=== PATIENT | female | born 1980 | race Caucasian/White ===

== ENCOUNTER 2023-10-13 12:56 | Emergency (ER) | payer OTHER, SELFPAY ==
[2023-10-13 12:58] VITALS: BP 132/96
[2023-10-13 13:27] LABS: % Basophils 0.3 % (0-2); % Eosinophils 0.4 % (0-6); % Immature Granulocytes 0.2 % (0-0.5); % Lymphocytes 30.3 % (20.5-51.1); % Monocytes 7.6 % (1.7-9.3); % Neutrophils 61.2 % (42.2-75.2); Absolute Lymphocytes 2.7 10^3/uL (1.2-3.4); Absolute Monocytes 0.7 10^3/uL (0.1-0.6); Absolute Neutrophils 5.5 10^3/uL (1.4-6.5); Hematocrit 46.5 % (37.0-47.0); Hemoglobin 16.3 g/dL (12.0-16.0); Mean Corp Hgb Conc. 35.1 g/dL (33.0-37.0); Mean Corpuscular Hgb 29.8 pg (27.0-31.0); Mean Platelet Volume 9.7 fL (7.4-10.4); Nucleated Red Blood Cells % 0 %; Platelet Count 258 10^3/uL (130-400); Red Blood Cell Count 5.47 10^6/uL (4.20-5.40); Red Cell Dist. Width 11.7 % (11.5-14.5)
[2023-10-13 13:38] LABS: HCG, Serum Qualitative Screen Negative
[2023-10-13 13:43] LABS: ALT (SGPT) 19 U/L (0-35); AST (SGOT) 30 U/L (14-36); Albumin 5.3 g/dl (3.5-5.0); Alkaline Phosphatase 67 U/L (38-126); Blood Urea Nitrogen 9 mg/dl (7-17); Calcium 10.5 mg/dl (8.4-10.2); Carbon Dioxide 24 mmol/L (22-30); Chloride 102 mmol/L (98-107); Glucose 118 mg/dl (70-99); Potassium 4.2 mmol/L (3.5-5.1); Sodium 135 mmol/L (135-145); Total Bilirubin 0.7 mg/dl (0.2-1.3); eGFR > 60.00
[2023-10-13 13:52] LABS: Troponin I 0.019 ng/ml
--- NOTE | 2023-10-13 15:56 | ED.GENMED ---
History of Present Illness
General
Chief Complaint: Heart Rate Problem
Source: patient and physician
Exam Limitations: none
Time Seen by Provider: 10/13/23 15:38
Nursing documentation reviewed up to this point in time: agreed with
Travel History
Have you had any contact with someone who has COVID-19?: No
Do you have any symptoms of coronavirus? Fever > 100 degrees, chills, cough, shortness of breath, sore throat, loss of taste or smell, muscle aches, or headache?: No
History of Present Illness
History of Present Illness:
43-year-old female presents emergency department due to rapid heart rate on EKG seen at primary care. She initially went to primary care today due to difficulty sleeping. Due to her rapid heart rate she was sent to the emergency department. Upon
arrival her heart rate was 106, she is now in a normal range. She recently went to [facility] over the weekend.
Past History
Past History
ED Past Medical History: Asthma
ED Past Surgical History: (X2)
Social History
Tobacco: Former smoker
Alcohol: Occasional
Drug: None
Personal:
Living: with family
Review of Systems
Review of Systems
Allergies reviewed?: Yes
All Other Systems: Not applicable
Constitutional: Reports no symptoms
EENT: Reports no symptoms
Respiratory: Reports no symptoms
Cardiac: Reports other (Rapid heart rate)
ABD/GI: Reports no symptoms
: Reports no symptoms
Musculoskeletal: Reports no symptoms
Skin: Reports no symptoms
Neurological: Reports no symptoms
Endocrine: Reports no symptoms
Hematologic/Lymphatic: Reports no symptoms
Psychiatric: Reports no symptoms
Phy Exam
Physical Exam
Physical Exam:
Physical Exam
General: no apparent distress, not acutely ill
Neck: supple. no meningeal signs. normal posterior pharynx
Heart: s1/s2 regular rate and rhythm, no murmur. equal radial
pulses.
HEENT: Pupils equal round reactive to light, EOMI
Lungs: no acute respiratory distress. clear bilaterally
Abdomen: normal bowel sounds. not tender. no CVAT
Neuro: alert and oriented. no focal neurological deficits cranial nerves II through XII intact
Skin: no rash
Psychiatric: well kept. interactive and cooperative
Extremities: no edema. no calf tenderness. negative homans. good distal pulses
Course
Orders/Labs/Results
Orders:
Orders
10/13/23 13:02
Electrocardiogram (*1) Urgent
Reason for Study: Chest Pain
EKG- Treatment ONCE
10/13/23 13:03
Test Result ONCE
10/13/23 13:09
Complete Blood Count/With Diff Urgent
Comprehensive Metabolic Panel Urgent
HCG, Serum Qualitative Screen Urgent
Troponin I Urgent
10/13/23 15:59
D-Dimer Urgent
Troponin I Urgent
Abnormal Lab Results
10/13/23
13:09
RBC 5.47 H 10^6/uL
(4.20-5.40)
Hgb 16.3 H g/dL
(12.0-16.0)
Absolute Monos (auto) 0.7 H 10^3/uL
(0.1-0.6)
Glucose 118 H mg/dl
(70-99)
Calcium 10.5 H mg/dl
(8.4-10.2)
Albumin 5.3 H g/dl
(3.5-5.0)
10/13/23 13:09
10/13/23 13:09
Vital Signs
Initial and Last Documented VS:
Initial Vital Signs
Temp Pulse Resp BP Pulse Ox
98.2 F 106 16 132/96 98
10/13/23 12:58 10/13/23 12:58 10/13/23 12:58 10/13/23 12:58 10/13/23 12:58
Last Documented Vital Signs
Temp Pulse Resp BP Pulse Ox
98.2 F 92 11 125/95 97
10/13/23 12:58 10/13/23 16:02 10/13/23 16:02 10/13/23 16:02 10/13/23 16:02
MDM/Problems Addressed
Differential Diagnosis Includes:
Heart dysrhythmia, pulmonary embolism
MDM/Problems Addressed:
43-year-old female with sinus tachycardia, difficulty sleeping. Recent trip to [facility]. D-dimer negative. No signs of distress in ED. Stable for discharge. Will follow-up with primary care.
*Pulse Oximetry
Patient hypoxic: no
*EKG
Interpreted by ED Provider?: Yes
EKG Intrepretation Date: 10/13/23
EKG Intrepretation Time: 13:05
Interpretation: normal
Comparison EKG: no comparison EKG present
Heart Rate: 99
Rate: normal
Rhythm: sinus
[place]: normal axis
Interval: normal interval
QRS Pattern: normal QRS
Ischemia: no ischemia
*Diet Assistant Interpretation
Rate: normal
Interpretation: normal
Heart Rate: 92
Rhythm: sinus
*Critical Care Note
Total Time (30-74mins, 75-104mins- exclusive of procedures): Not Applicable
Patient Management
Social determinants of health affecting care: Living situation
Discussion with other providers: PCP (Discussed with Dr. Bai)
Escalation/DeEscalation of care consider admission/obs:
admit not indicated
ED Attending Note
-
Portions of this chart may have been created with voice recognition software.� Occasional wrong word or��sound alike� substitutions may have occurred due to the inherent limitations of voice recognition software.
Discharge Plan
Departure
Patient Disposition: Home (Routine Discharge)
Date of Disposition: 10/13/23
Time of Disposition: 16:57
Patient with high blood pressure during this ER visit?: No
Condition: Good
Discharge Problem:
Regular sinus tachycardia, Disturbance of sleep
Instructions: Sinus Tachycardia (DC), Insomnia (DC), BLOOD PRESSURE
Prescriptions:
No Action
vit [id number] [ Vitamin] 1 EACH tablet
1 ea PO DAILY
ibuprofen 600 MG tablet
600 mg PO Q6HPRN PRN (Reason: pain) Qty: 0 0RF
oxycodone-acetaminophen 5 MG/325 MG tablet
1 tab PO Q3HPRN PRN (Reason: moderate pain) Qty: 20 0RF
ondansetron 4 mg tablet,disintegrating
4 mg PO Q8HPRN PRN (Reason: nausea and vomiting) Qty: 10 0RF
Referrals:
Gifty Bai, DO [Active] - Call in 1-3 days for appt
UNKNOWN - PT DOES,NOT KNOW [Family Provider] -
Interventions
Interventions:
*Risk Screen - Suicide Last Done: 10/13/23 13:01
*General Assessment Last Done: 10/13/23 12:58
*Neglect/Abuse Screening Last Done: 10/13/23 12:58
*ED COVID-19 Vaccine History Last Done: 10/13/23 15:43
ED- Cardiac Assessment Last Done: 10/13/23 16:10
ED- Pulmonary Assessment Last Done: 10/13/23 16:10
Discharge Date and Time
Print Language: FILIPINO
[2023-10-13 16:02] VITALS: BP 125/95
[2023-10-13 16:37] LABS: D-Dimer < 0.27 ug/mlFEU (0.00-0.50)
[2023-10-13 16:51] LABS: Troponin I < 0.012 ng/ml
[2023-10-13 17:00] VITALS: BP 126/97
== END 2023-10-13 17:23 | disposition home or self-care (01) ==
LOC: EMR 12:56
PROVIDERS: Emergency Medicine; EMERGENCY PHYSICIAN Emergency Medicine
DX: R00.0 Tachycardia, unspecified (principal); G47.9 Sleep disorder, unspecified; Z87.891 Personal history of nicotine dependence
CPT/HCPCS: 99284; 80053; 84484; 84703; 85025; 85379; 93005

== ENCOUNTER 2023-10-14 02:08 | Emergency (ER) | payer OTHER, SELFPAY ==
[2023-10-14 02:11] VITALS: BP 144/92
--- NOTE | 2023-10-14 02:49 | ED.GENMED ---
History of Present Illness
<NORMA Brenner - Last Filed: 10/14/23 21:56>
General
Chief Complaint: Anxiety
Source: patient
Exam Limitations: none
Time Seen by Provider: 10/14/23 02:34
Nursing documentation reviewed up to this point in time: agreed with
Travel History
Have you had any contact with someone who has COVID-19?: No
Do you have any symptoms of coronavirus? Fever > 100 degrees, chills, cough, shortness of breath, sore throat, loss of taste or smell, muscle aches, or headache?: No
History of Present Illness
History of Present Illness:
patient is a 43 y/o female presenting with anxiety x 6 hours. Patient admits that she was at the ED earlier today for insomnia x 6 days while on her vacation in [facility]. Patient admits that she has had increased anxiety over the last 6 days that
encompassed palpitations, flushing and sleep disturbance. Patient was worked up with EKG and D dimer which both were unremarkable. Patient was discharged and went home and took doxepin to calm down. Patient states she had overwhelming anxiety while
laying in bed and returned. Patient is currently having palpitations, flushing and body spasms. Patient denies having previous episodes like this in the past. Patient denies N/V/D/C, CP, SOB, SAUCEDA. Patient states since the anxiety began 6 days ago she
has had decreased appetite. Patient denies any new onset life stressors. Patient denies any tobacco or alcohol intake in last 48 hrs. EKG from earlier today was reviewed and showed no abnormalities.
Past History
<NORMA Brenner - Last Filed: 10/14/23 21:56>
Past History
ED Past Medical History: Asthma
ED Past Surgical History: (X2)
Social History
Tobacco: Former smoker
Alcohol: Occasional
Drug: None
Personal:
Living: with family
Review of Systems
<NORMA Brenner - Last Filed: 10/14/23 21:56>
Review of Systems
Constitutional: Reports sleep disturbance
Respiratory: Reports trouble breathing (hyperventilation)
Cardiac: Reports diaphoresis and palpitations
ABD/GI: Reports no symptoms
: Reports no symptoms
Musculoskeletal: Reports back pain
Skin: Reports other (flushing)
Neurological: Reports no symptoms
Psychiatric: Reports anxiety
Phy Exam
<NORMA Brenner - Last Filed: 10/14/23 21:56>
Physical Exam
Physical Exam:
anxious on exam
Cardiovascular Exam
Cardiovascular Exam: tachycardia
Skin Exam
Skin Exam: warm/dry and erythema
Psychiatric Exam
Psychiatric Exam: anxious
Course
<NORMA Brenner - Last Filed: 10/14/23 21:56>
Orders/Labs/Results
Orders:
Orders
10/14/23 04:59
Lorazepam [Ativan] 1 mg PO NOW STA
Vital Signs
Initial and Last Documented VS:
Initial Vital Signs
Temp Pulse Resp BP Pulse Ox
98.6 F 103 24 144/92 99
10/14/23 02:11 10/14/23 02:11 10/14/23 02:11 10/14/23 02:11 10/14/23 02:11
Last Documented Vital Signs
Temp Pulse Resp BP Pulse Ox
98.6 F 103 24 125/93 98
10/14/23 02:11 10/14/23 02:11 10/14/23 02:11 10/14/23 06:00 10/14/23 06:30
<Mikey Peñaloza DO - Last Filed: 10/14/23 06:40>
Orders/Labs/Results
Orders:
Orders
10/14/23 04:59
Lorazepam [Ativan] 1 mg PO NOW STA
Vital Signs
Initial and Last Documented VS:
Initial Vital Signs
Temp Pulse Resp BP Pulse Ox
98.6 F 103 24 144/92 99
10/14/23 02:11 10/14/23 02:11 10/14/23 02:11 10/14/23 02:11 10/14/23 02:11
Last Documented Vital Signs
Temp Pulse Resp BP Pulse Ox
98.6 F 103 24 125/93 98
10/14/23 02:11 10/14/23 02:11 10/14/23 02:11 10/14/23 06:00 10/14/23 06:30
<NORMA Brenner - Last Filed: 10/14/23 21:56>
MDM/Problems Addressed
Differential Diagnosis Includes:
anxiety
pheochromocytoma
MDM/Problems Addressed:
anxiety
<Mikey Peñaloza DO - Last Filed: 10/14/23 06:40>
MDM/Problems Addressed
Differential Diagnosis Includes:
anxiety
Insomnia
<NORMA Brenner - Last Filed: 10/14/23 21:56>
*Critical Care Note
Total Time (30-74mins, 75-104mins- exclusive of procedures): Not Applicable
<Mikey Peñaloza DO - Last Filed: 10/14/23 06:40>
*Pulse Oximetry
Patient hypoxic: no
*Chemical Production Engineer Interpretation
Rate: normal
<Mikey Peñaloza DO - Last Filed: 10/14/23 06:40>
Patient Management
Social determinants of health affecting care: Living situation and Strong social support
ED Attending Note
<NORMA Brenner - Last Filed: 10/14/23 21:56>
-
Portions of this chart may have been created with voice recognition software.� Occasional wrong word or��sound alike� substitutions may have occurred due to the inherent limitations of voice recognition software.
<Mikey Peñaloza DO - Last Filed: 10/14/23 06:40>
ED Attending Note
Patient seen and examined by attending physician: Yes
I performed the substantive portion of visit, reviewed & personally made and approve the management plan that is documented in note by myself or GRICEL.: Yes
ED Attending Note:
Pleasant 43-year-old female presents with insomnia for the last 6 days. She was on vacation with her family for and has been having poor sleep since. She saw her primary care provider who took an EKG and was sent to the emergency department
earlier yesterday evening for workup. She was seen by a different ER physician and had complete cardiac workup and was discharged. She got home and stated that she could not sleep. She started feel anxious and thought she was having a panic
attack so she called EMS and came back to the emergency department. Upon arrival she was still anxious. She received a dose of Ativan which allowed her to sleep for several hours. Upon awakening, she states that her symptoms had resolved and she
did admit to getting some sleep. She denies any chest pain or shortness of breath. Patient was seen in conjunction with the PA student. I have reviewed and agree with the history and treatment plan presented. On my independent physical exam,
patient is awake, alert, and oriented x3, no acute distress. Heart is regular rate and rhythm. Lungs are clear to auscultation bilaterally without wheezes rales or rhonchi present. Abdomen is soft and nontender. She is mentating appropriately.
Moves all 4 extremities.
Discharge Plan
Departure
Patient Disposition: Home (Routine Discharge)
Date of Disposition: 10/14/23
Time of Disposition: 06:36
Patient with high blood pressure during this ER visit?: Yes
Condition: Good
Discharge Problem:
Anxiety, Insomnia
Instructions: Anxiety, Adult (DC), BLOOD PRESSURE
Prescriptions:
New
lorazepam [Ativan] 0.5 mg tablet
0.5 mg PO HS PRN (Reason: anxiety) Qty: 7 0RF
No Action
Zyrtec 10 mg Capsule
10 mg PO DAILY
doxepin 6 mg Tablet
6 mg PO HS
Referrals:
Gifty Bai DO [Family Provider] -
Activity Restrictions/Additional Instructions:
It was a pleasure meeting you and taking part in your care. We hope for your continued healing and wellness.
Please read discharge instructions in their entirety. However, they are for general education and may not describe your exact diagnosis at discharge. Information on your ER visit and medical conditions were discussed with you along with appropriate
follow up information...
If indicated, please take your medications as instructed and indicated on discharge paperwork.
Please schedule a follow up appointment as directed. Call to schedule an appointment
Please return to the emergency department with ANY change in, persisting, or worsening of symptoms. If any of your symptoms do not improve, or persist, or become more severe within 6-12 hours, please return to the emergency department for further
care.
Please return to the emergency department if you develop a headache, neck pain/stiffness, fever greater than 100.4F, chest pain, shortness of breath, persistent nausea, vomiting, slurred speech, difficulty walking, numbness/tingling, weakness, signs
of infection or any other symptoms that are worrisome to you.
If you have any questions or concerns please do not hesitate to call the Hospital at or E-mail me directly at [email or web address]
Interventions
Interventions:
*Risk Screen - Suicide Last Done: 10/14/23 02:11
*General Assessment Last Done: 10/14/23 02:11
*Neglect/Abuse Screening Last Done: 10/14/23 02:11
ED- Fall Risk Assessment Last Done: 10/14/23 02:25
*Nursing Disposition Last Done: 10/14/23 06:45
ED-Psychological Assessment Last Done: 10/14/23 02:25
Discharge Date and Time
Discharge Date/Time: 10/14/23 06:46
Print Language: WOLOF
[2023-10-14 03:00] VITALS: BP 135/94
[2023-10-14] MEDS: ATIVAN 1 MG PO (05:05)
[2023-10-14 05:07] VITALS: BP 137/96
[2023-10-14 06:00] VITALS: BP 125/93
== END 2023-10-14 06:46 | disposition home or self-care (01) ==
LOC: EMR 02:08
PROVIDERS: EMERGENCY PHYSICIAN Student in an Organized Health Care Education/Training Program; FAMILY PHYSICIAN Family Medicine
DX: F41.9 Anxiety disorder, unspecified (principal); G47.00 Insomnia, unspecified; R00.2 Palpitations; R23.2 Flushing; R03.0 Elevated blood-pressure reading, without diagnosis of hypertension; J45.909 Unspecified asthma, uncomplicated
CPT/HCPCS: 99283

== ENCOUNTER → 2023-10-27 08:34 | Outpatient (REF) | payer OTHER, SELFPAY | LOC: RCS 08:34 | PROVIDERS: ATTENDING PHYSICIAN Family Medicine | DX: R00.0 Tachycardia, unspecified (principal) | CPT/HCPCS: 93225; 93226 ==

== ENCOUNTER → 2023-11-24 09:20 | Outpatient (REF) | payer OTHER, SELFPAY | LOC: HWRCS 09:20 | PROVIDERS: ATTENDING PHYSICIAN Internal Medicine Cardiovascular Disease; FAMILY PHYSICIAN Family Medicine | DX: R00.0 Tachycardia, unspecified (principal) | CPT/HCPCS: 93306 ==

== ENCOUNTER 2023-12-11 08:04 | Emergency (ER) | payer OTHER, SELFPAY ==
[2023-12-11 08:06] VITALS: BP 137/95
[2023-12-11 08:14] VITALS: BMI 20.4
--- NOTE | 2023-12-11 08:25 | ED.GENMED ---
History of Present Illness
General
Chief Complaint: Abdominal Symptoms
Source: patient
Time Seen by Provider: 12/11/23 08:10
Travel History
Have you had any contact with someone who has COVID-19?: No
Do you have any symptoms of coronavirus? Fever > 100 degrees, chills, cough, shortness of breath, sore throat, loss of taste or smell, muscle aches, or headache?: No
History of Present Illness
History of Present Illness:
43-year-old female with no significant past medical history presents to the emergency department for evaluation after she has been dealing with 2 months of almost daily nausea and vomiting, palpitations, diminished p.o. intake, restlessness and
difficulty sleeping and generally feeling unwell. Patient states this all started a few days after returning home from vacation while in [place], noting she has been to the same [place] multiple times without any issues. She has been worked up by
her primary care provider, DIRECTOR CLINICAL PHARMACOLOGY and has been to the emergency department as well. No reported explanations despite being started on multiple medications including an SSRI, attempting Ativan and Klonopin, BuSpar, Zofran ODT, propranolol. She reports
the propranolol seem to help her the most but states still having symptoms despite this. Patient denies any SI, HI, hallucinations but does states she is just tired of having the symptoms and wants them to go away. She has an appointment scheduled
with [facility] for [facility] but states not seeing them until December 23 and a week or 2 later as well. She is also scheduled to have an abdominal ultrasound but was unable to get this appointment for a few weeks. Patient believes that the symptoms
may be related to her menstrual period.
Past History
Past History
ED Past Surgical History: Appendectomy and (X2)
Social History
Tobacco: Former smoker
Alcohol: Occasional (Drink wine every other day but has stopped doing this over the last 2 months)
Drug: Marijuana (Medical marijuana card but has not been using this as it stimulated palpitations)
Personal:
Living: with family
Review of Systems
Review of Systems
All Other Systems: ROS reviewed and negative except as documented in HPI and ROS
Phy Exam
Physical Exam
Physical Exam:
GENERAL: Alert , tearful, anxious
EYE: clear conjunctiva b/l
HEAD: NCAT
ENT: o/p clr, mmm.
CARDIAC: Regular rate and rhythm .
LUNGS: Clear breath sounds bilaterally, no acute respiratory distress, no wheezes/rales/rhonchi
ABDOMEN: Soft, without focal tenderness, no r/g, no cvat
NEUROLOGICAL: Alert and oriented
SKIN: Warm and dry, skin intact.
MUSCULOSKELETAL: well perfused.
PSYCH: Normal and appropriate interaction.
Scores
Heart Failure Risk
Heart Failure Risk Score: Not Applicable
Heart Score for Chest Pain Patients
STEMI patient?: Not applicable
Withdrawal Assessment of Alcohol
Withdrawal Assessment Completed?: Not applicable
Course
Orders/Labs/Results
Orders:
Orders
12/11/23 08:23
Diphenhydramine [Benadryl] 25 mg IV NOW STA
Ondansetron Injectable [Zofran] 4 mg IV NOW STA
Test Result ONCE
12/11/23 08:24
US Abdomen Complete/Upper Urgent
Comment:
Reason For Exam: nausea and vomiting
12/11/23 09:21
Crisis Consult Urgent
Reason for Consult: depression/anxiety
12/11/23 09:25
Complete Blood Count/With Diff Urgent
Comprehensive Metabolic Panel Urgent
Free T3 Urgent
Free T4 Urgent
HCG, Serum Qualitative Screen Urgent
Magnesium Urgent
TSH Urgent
Abnormal Lab Results
12/11/23
09:25
RDW 11.4 L %
(11.5-14.5)
Absolute Neuts (auto) 6.9 H 10^3/uL
(1.4-6.5)
Creatinine 0.5 L mg/dL
(0.6-1.0)
12/11/23 09:25
12/11/23 09:25
Vital Signs
Initial and Last Documented VS:
Initial Vital Signs
Temp Pulse Resp BP Pulse Ox
97.4 F 75 16 137/95 98
12/11/23 08:06 12/11/23 08:06 12/11/23 08:06 12/11/23 08:06 12/11/23 08:06
Last Documented Vital Signs
Temp Pulse Resp BP Pulse Ox
97.4 F 63 18 121/84 99
12/11/23 08:06 12/11/23 09:40 12/11/23 09:40 12/11/23 09:40 12/11/23 09:40
MDM/Problems Addressed
Differential Diagnosis Includes:
Anxiety/depression, electrolyte disturbance, less concern for an acute surgical abdomen, thyroid disorder
MDM/Problems Addressed:
43-year-old female presenting emergency department for evaluation of 2 months of anxiety, palpitations, nausea and vomiting. Has had extensive workup through primary care provider, PROCESS SAFETY SPECIALIST and has been seen in the emergency department recently as
well but no specific etiology is found. Patient is hemodynamically stable here, appears very anxious. Overall I doubt any emergent pathologies however we will repeat labs. Will also obtain ultrasound while patient is in the emergency department.
Agreeable to evaluation by Kati Garcia while here. Reassessment following
*Radiology
Radiology exam reviewed: radiology read reviewed
*Pulse Oximetry
Patient hypoxic: no
*Critical Care Note
Total Time (30-74mins, 75-104mins- exclusive of procedures): Not Applicable
Data Reviewed
Review of Other/Old Records Reveals: Labs and Records
Source: patient
Patient Management
Discussion with other providers: PCP
Escalation/DeEscalation of care consider admission/obs:
Patient is resting comfortably and in no acute distress. Her ultrasound ultimately came back without any abnormal pathologies. Labs are also unremarkable. Awaiting consultation with [facility]. I did notify patient's primary care provider
about her workup thus far and will follow-up with patient on this later this afternoon at her appointment.
Patients US without any abnormal findings. Medically I do not suspect any emergent pathology. Patient is stable and medically cleared to be evaluated at [facility]
ED Attending Note
-
Portions of this chart may have been created with voice recognition software.� Occasional wrong word or��sound alike� substitutions may have occurred due to the inherent limitations of voice recognition software.
Discharge Plan
Departure
Patient Disposition: [facility]
Date of Disposition: 12/11/23
Time of Disposition: 12:23
Patient with high blood pressure during this ER visit?: No
Discharge Problem:
Nausea and vomiting
Instructions: Nausea and Vomiting, Adult (DC)
Prescriptions:
No Action
Zyrtec 10 mg Capsule
10 mg PO DAILY
doxepin 6 mg Tablet
6 mg PO HS
lorazepam [Ativan] 0.5 mg tablet
0.5 mg PO HS PRN (Reason: anxiety) Qty: 7 0RF
Referrals:
Gifty Bai DO [Family Provider] -
Interventions
Interventions:
*Risk Screen - Suicide Last Done: 12/11/23 08:15
*General Assessment Last Done: 12/11/23 08:15
*Neglect/Abuse Screening Last Done: 12/11/23 08:15
ED- Fall Risk Assessment Last Done: 12/11/23 08:17
*ED COVID-19 Vaccine History Last Done: 12/11/23 08:06
HA-Elnhwc-Fntlukekkc Assessment Last Done: 12/11/23 08:17
Discharge Date and Time
Print Language: [email or web address]
[2023-12-11] MEDS: ZOFRAN 4 MG IV (09:26)
[2023-12-11] MEDS: BENADRYL 25 MG IV (09:26)
[2023-12-11 09:40] VITALS: BP 121/84
[2023-12-11 09:49] LABS: % Basophils 0.2 % (0-2); % Eosinophils 0.5 % (0-6); % Immature Granulocytes 0.3 % (0-0.5); % Lymphocytes 22.7 % (20.5-51.1); % Monocytes 5.6 % (1.7-9.3); % Neutrophils 70.7 % (42.2-75.2); Absolute Eosinophils 0.1 10^3/uL (0-0.7); Absolute Lymphocytes 2.2 10^3/uL (1.2-3.4); Absolute Monocytes 0.6 10^3/uL (0.1-0.6); Absolute Neutrophils 6.9 10^3/uL (1.4-6.5); Hematocrit 44.6 % (37.0-47.0); Hemoglobin 15.7 g/dL (12.0-16.0); Mean Corp Hgb Conc. 35.2 g/dL (33.0-37.0); Mean Corpuscular Hgb 29.9 pg (27.0-31.0); Mean Platelet Volume 10.1 fL (7.4-10.4); Nucleated Red Blood Cells % 0 %; Platelet Count 239 10^3/uL (130-400); Red Blood Cell Count 5.25 10^6/uL (4.20-5.40); Red Cell Dist. Width 11.4 % (11.5-14.5); White Blood Cell Count 9.8 10^3/uL (4.8-10.8)
[2023-12-11 10:03] LABS: HCG, Serum Qualitative Screen Negative
[2023-12-11 10:17] LABS: ALT (SGPT) 23 U/L (0-35); AST (SGOT) 29 U/L (14-36); Albumin 4.5 g/dl (3.5-5.0); Alkaline Phosphatase 57 U/L (38-126); Blood Urea Nitrogen 9 mg/dl (7-17); Carbon Dioxide 22 mmol/L (22-30); Chloride 107 mmol/L (98-107); Estimated Creatinine Clearance 124 ml/min; Glucose 98 mg/dl (70-99); Magnesium 1.8 mg/dl (1.6-2.3); Potassium 4.3 mmol/L (3.5-5.1); Sodium 137 mmol/L (135-145); eGFR > 60.00
[2023-12-11 10:37] LABS: TSH 0.89 uIU/ml (0.47-4.68)
[2023-12-11 11:56] LABS: Free T3 3.91 pg/ml (2.77-5.27)
[2023-12-11 13:10] VITALS: BP 123/89
== END 2023-12-11 13:12 ==
LOC: EMR 08:04
PROVIDERS: Physician Assistant Medical; EMERGENCY PHYSICIAN Emergency Medicine; FAMILY PHYSICIAN Family Medicine
DX: R11.2 Nausea with vomiting, unspecified (principal); Z87.891 Personal history of nicotine dependence; Z90.49 Acquired absence of other specified parts of digestive tract
CPT/HCPCS: 99284; 76700; 80053; 83735; 84439; 84443; 84481; 84703; 85025

== ENCOUNTER → 2023-12-14 13:00 | Outpatient (REF) | payer OTHER, SELFPAY | LOC: RAD 13:00 | PROVIDERS: ATTENDING PHYSICIAN Obstetrics & Gynecology; FAMILY PHYSICIAN Family Medicine | DX: N94.6 Dysmenorrhea, unspecified (principal) | CPT/HCPCS: 76830; 76856 ==

== ENCOUNTER 2024-09-06 12:58 | Emergency (ER) | payer OTHER, SELFPAY ==
[2024-09-06 13:03] VITALS: BP 149/100
[2024-09-06 13:28] LABS: % Basophils 0.2 % (0-2); % Eosinophils 0.5 % (0-6); % Immature Granulocytes 0.4 % (0-0.5); % Lymphocytes 29.2 % (20.5-51.1); % Monocytes 5.6 % (1.7-9.3); % Neutrophils 64.1 % (42.2-75.2); Absolute Eosinophils 0.1 10^3/uL (0-0.7); Absolute Lymphocytes 3.3 10^3/uL (1.2-3.4); Absolute Monocytes 0.6 10^3/uL (0.1-0.6); Absolute Neutrophils 7.3 10^3/uL (1.4-6.5); Hematocrit 43.8 % (37.0-47.0); Hemoglobin 14.9 g/dL (12.0-16.0); Mean Corpuscular Hgb 29.6 pg (27.0-31.0); Mean Corpuscular Volume 86.9 fL (81.0-99.0); Mean Platelet Volume 9.8 fL (7.4-10.4); Nucleated Red Blood Cells % 0 %; Platelet Count 257 10^3/uL (130-400); Red Blood Cell Count 5.04 10^6/uL (4.20-5.40); Red Cell Dist. Width 12.4 % (11.5-14.5); White Blood Cell Count 11.3 10^3/uL (4.8-10.8)
[2024-09-06 13:34] LABS: HCG, Serum Qualitative Screen Negative
[2024-09-06 13:37] LABS: ALT (SGPT) 22 U/L (0-35); AST (SGOT) 24 U/L (14-36); Albumin 4.4 g/dl (3.5-5.0); Alkaline Phosphatase 92 U/L (38-126); Blood Urea Nitrogen 14 mg/dl (7-17); Calcium 10.3 mg/dl (8.4-10.2); Carbon Dioxide 24 mmol/L (22-30); Chloride 103 mmol/L (98-107); Glucose 87 mg/dl (70-99); Lipase 243 U/L (23-300); Potassium 4.1 mmol/L (3.5-5.1); Sodium 136 mmol/L (135-145); Total Bilirubin 0.4 mg/dl (0.2-1.3); eGFR > 60.00
[2024-09-06] MEDS: ZOFRAN 4 MG IV (17:27)
[2024-09-06] MEDS: MORPHINE SULFATE 4 MG IV (17:27)
[2024-09-06] MEDS: NSS 1000 IV (17:28)
--- NOTE | 2024-09-06 17:53 | ED.GENMED ---
History of Present Illness
General
Chief Complaint: Abdominal Pain
Source: patient
Exam Limitations: none
Time Seen by Provider: 09/06/24 16:44
Nursing documentation reviewed up to this point in time: agreed with
History of Present Illness
History of Present Illness:
44-year-old female presenting to the emergency department for evaluation of abdominal pain. Patient reports symptom onset this morning after waking and initially describes as a dull cramping across her lower abdomen. Pain gradually worsened
prompting evaluation emergency department. Patient did have associated nausea and dry heaves morning, as well. Patient denies any vomiting, diarrhea/constipation, dysuria/hematuria. Patient denies any chest pain or shortness of breath. No
abnormal vaginal bleeding or discharge. No fevers or chills.
Patient states symptoms feel similar to prior ovarian cyst rupture.
Patient did have her appendix removed a few years ago.
Past History
Past History
ED Past Medical History: Asthma
ED Past Surgical History: Appendectomy and (X2)
Social History
Tobacco: Former smoker
Alcohol: Occasional (Drink wine every other day but has stopped doing this over the last 2 months)
Drug: Marijuana (Medical marijuana card but has not been using this as it stimulated palpitations)
Personal:
Living: with family
Review of Systems
Review of Systems
Allergies reviewed?: Yes
All Other Systems: ROS reviewed and negative except as documented in HPI and ROS
Phy Exam
Physical Exam
Physical Exam:
Vitals: Hypertensive, otherwise vital signs stable. Afebrile
General: Patient is tearful, moderately uncomfortable due to pain
Skin: Warm and dry, no rashes or lesions
Head: Normocephalic, atraumatic
Eyes: Sclera nonicteric. EOMs intact. No nystagmus.
Throat: Protecting airway
Neck: Normal ROM, no cervical spine tenderness, no meningismus
Cardiac: Regular rate and rhythm, no murmurs.
Pulm: Normal respiratory effort, no wheezes, rales, rhonchi heard on exam.
Abdomen: Abdomen soft. Diffuse tenderness in lower abdomen, worse in right lower quadrant. No rebound tenderness or guarding
Extremities: No evidence of cyanosis or edema. Palpable DP pulses bilaterally
Neuro: AAOx3. Grossly intact.
Psychiatric: Normal affect.
Course
Orders/Labs/Results
Orders:
Orders
09/06/24 13:09
Test Result ONCE
09/06/24 13:14
CMP [Comprehensive Metabolic Panel] Urgent
Complete Blood Count/With Diff Urgent
HCG, Serum Qualitative Screen Urgent
Lipase Urgent
09/06/24 15:33
US Pelvis W Transvag Combined Urgent
Comment:
Reason For Exam: pelvic pain
09/06/24 17:12
Electrocardiogram (*1) Urgent
Reason for Study: Abdominal Pain
EKG- Treatment ONCE
0.9% Sodium Chloride 1000 ml [Nss] 1,000 ml IV BOLUS
Morphine Sulfate 4 mg IV NOW STA
Ondansetron Injectable [Zofran] 4 mg IV NOW STA
09/06/24 17:13
CT Abd/pelvis W Iv Cont Urgent
Comment:
Reason For Exam: Lower abdominal pain, +nausea
09/06/24 18:14
Ketorolac [Toradol] 15 mg IV NOW STA
09/06/24 19:31
Urinalysis Reflex To Culture Urgent
Date Specimen was Collected: 09/06/24
Time Specimen was Collected: 19:28
Urine Microscopic Reflex Cult Urgent
Abnormal Lab Results
09/06/24 09/06/24
13:14 19:31
WBC 11.3 H 10^3/uL
(4.8-10.8)
Absolute Neuts (auto) 7.3 H 10^3/uL
(1.4-6.5)
Calcium 10.3 H mg/dl
(8.4-10.2)
Urine Ketones 2+ A
(Negative)
Urine Bacteria (Reflex) Few A
(Negative)
Urine Albumin (Reflex) 2+ A
(Neg - Trace)
09/06/24 13:14
09/06/24 13:14
Vital Signs
Initial and Last Documented VS:
Initial Vital Signs
Temp Pulse Resp BP Pulse Ox
98.2 F 86 20 149/100 99
09/06/24 13:03 09/06/24 13:03 09/06/24 13:03 09/06/24 13:03 09/06/24 13:03
Last Documented Vital Signs
Temp Pulse Resp BP Pulse Ox
97.8 F 87 20 138/86 98
09/06/24 20:07 09/06/24 20:07 09/06/24 20:07 09/06/24 20:07 09/06/24 20:07
MDM/Problems Addressed
Differential Diagnosis Includes:
Not limited to: Ovarian cyst, ovarian torsion, diverticulitis, pyelonephritis, nephrolithiasis, etc.
MDM/Problems Addressed:
44 year old female presenting with vague abdominal pain starting this morning. Also with dry heaves although no fever, urinary, or OXYACETYLENE BURNER complaints. Patient initially hypertensive although improved by my assessment. Physical exam as above. Abdomen
soft throughout with somewhat diffuse tenderness. No rebound tenderness or guarding. No CVA tenderness. Workup in ED unremarkable including labwork, pelvic US, abdominal CT, and UA. EKG also obtained which shows NSR without ischemic changes. Do not
suspect cardiac etiology. Lower suspicion for ruptured ovarian cyst given no significant amount of free fluid in pelvis although would be on differential. Patient does appear improved after IVF, zofran, pain medication. Patient has remained stable.
Given negative workup and improvement in symptoms - feel patient stable for discharge home at this point with strict return precautions and PCP f/u. Case discussed with attending physician.
Chronic conditions affecting care:
N/A
Acute Exacerbation and/or Progression of Chronic Illness:
N/A
*Radiology
Radiology exam reviewed: radiology read reviewed
*Pulse Oximetry
Patient hypoxic: no
*EKG
Interpreted by ED Provider?: Yes
EKG Intrepretation Date: 09/06/24
Interpretation: normal
Comparison EKG: no comparison EKG present
Heart Rate: 74
Rate: normal
Rhythm: sinus
Pyote: normal axis
Interval: normal interval
QRS Pattern: normal QRS
Ischemia: no ischemia
*Web Site Administrator Interpretation
Rate: Web Site Administrator- N/A
*Critical Care Note
Total Time (30-74mins, 75-104mins- exclusive of procedures): Not Applicable
ED Attending Note
-
Portions of this chart may have been created with voice recognition software.� Occasional wrong word or��sound alike� substitutions may have occurred due to the inherent limitations of voice recognition software.
Discharge Plan
Departure
Patient Disposition: Home (Routine Discharge)
Date of Disposition: 09/06/24
Time of Disposition: 20:03
Patient with high blood pressure during this ER visit?: Yes
Covid-19: Not Applicable
Discharge Problem:
Abdominal pain
Instructions: Abdominal Pain, BLOOD PRESSURE
Prescriptions:
No Action
Zyrtec 10 mg Capsule
10 mg PO DAILY
doxepin 6 mg Tablet
6 mg PO HS
lorazepam [Ativan] 0.5 mg tablet
0.5 mg PO HS PRN (Reason: anxiety) Qty: 7 0RF
Activity Restrictions/Additional Instructions:
RETURN TO THE EMERGENCY DEPARTMENT WITH ANY FEVERS, SEVERE ABDOMINAL PAIN, INTRACTABLE NAUSEA/ VOMITING, WORSENING IN CURRENT SYMPTOMS, OR ANY OTHER CONCERNS
-As discussed your lab work, urine sample, pelvic ultrasound, and abdominal CT showed no acute abnormalities today.
-Continue to take Motrin as needed to for pain. Stay well-hydrated.
-You should follow-up with your primary care provider for further evaluation/management and to ensure that symptoms are improving.
Monitor your symptoms closely and return to the emergency department with any acute worsening/new symptoms or any other concerns
Interventions
Interventions:
*Risk Screen - Suicide Last Done: 09/06/24 17:32
*General Assessment Last Done: 09/06/24 17:32
*Neglect/Abuse Screening Last Done: 09/06/24 17:32
*ED COVID-19 Vaccine History Last Done: 09/06/24 13:03
*Nursing Disposition Last Done: 09/06/24 20:29
UV-Vqspin-Nqfqpweybu Assessment Last Done: 09/06/24 17:32
Discharge Date and Time
Discharge Date/Time: 09/06/24 20:29
Print Language: NORWEGIAN
[2024-09-06] MEDS: TORADOL 15 MG IV (18:18)
[2024-09-06 19:39] LABS: Urine Albumin 2+ (Neg - Trace); Urine Bilirubin Negative (Negative); Urine Character Clear (Clear); Urine Color Yellow; Urine Glucose Negative (Negative); Urine Ketone 2+ (Negative); Urine Leukocyte Negative (Negative); Urine Nitrite Negative (Negative); Urine Occult Blood Negative (Negative); Urine Urobilinogen Negative (Neg - 1+)
[2024-09-06 19:46] LABS: Urine Bacteria Few (Negative); Urine Red Blood Cell 0-2 /HPF (0-2); Urine Squamous Cell 26-30 /LPF (Few); Urine White Cell 0-2 /HPF (0-5)
[2024-09-06 20:07] VITALS: BP 138/86
== END 2024-09-06 20:29 | disposition home or self-care (01) ==
LOC: EMR 12:58
PROVIDERS: Physician Assistant; Student in an Organized Health Care Education/Training Program; EMERGENCY PHYSICIAN Emergency Medicine; FAMILY PHYSICIAN Family Medicine
DX: R10.30 Lower abdominal pain, unspecified (principal); R11.2 Nausea with vomiting, unspecified; R03.0 Elevated blood-pressure reading, without diagnosis of hypertension; J45.909 Unspecified asthma, uncomplicated; Z87.891 Personal history of nicotine dependence; Z87.01 Personal history of pneumonia (recurrent); Z88.1 Allergy status to other antibiotic agents
CPT/HCPCS: 99285; 96375 ×2; 96361; 96374; 74177; 76830; 76856; 80053; 81003; 81015; 83690; 84703; 85025; 93005; Q9967

== ENCOUNTER 2024-09-09 00:06 | Emergency (ER) | payer OTHER, SELFPAY ==
[2024-09-09 00:10] VITALS: BP 127/80
[2024-09-09] MEDS: ZOFRAN 4 MG IV (00:33)
[2024-09-09 00:42] LABS: % Basophils 0.2 % (0-2); % Eosinophils 0.8 % (0-6); % Immature Granulocytes 0.5 % (0-0.5); % Lymphocytes 19.6 % (20.5-51.1); % Monocytes 4.2 % (1.7-9.3); % Neutrophils 74.7 % (42.2-75.2); Absolute Eosinophils 0.1 10^3/uL (0-0.7); Absolute Immature Granulocytes 0.1 10^3/uL (0-0.05); Absolute Lymphocytes 2.5 10^3/uL (1.2-3.4); Absolute Monocytes 0.5 10^3/uL (0.1-0.6); Absolute Neutrophils 9.6 10^3/uL (1.4-6.5); Hemoglobin 15.2 g/dL (12.0-16.0); Mean Corp Hgb Conc. 34.5 g/dL (33.0-37.0); Mean Corpuscular Hgb 29.7 pg (27.0-31.0); Mean Corpuscular Volume 85.9 fL (81.0-99.0); Mean Platelet Volume 10.1 fL (7.4-10.4); Nucleated Red Blood Cells % 0 %; Platelet Count 210 10^3/uL (130-400); Red Blood Cell Count 5.12 10^6/uL (4.20-5.40); Red Cell Dist. Width 11.9 % (11.5-14.5); White Blood Cell Count 12.8 10^3/uL (4.8-10.8)
[2024-09-09 00:45] LABS: HCG, Serum Qualitative Screen Negative
[2024-09-09 00:51] LABS: ALT (SGPT) 23 U/L (0-35); AST (SGOT) 52 U/L (14-36); Alkaline Phosphatase 79 U/L (38-126); Blood Urea Nitrogen 19 mg/dl (7-17); Calcium 10.5 mg/dl (8.4-10.2); Carbon Dioxide 18 mmol/L (22-30); Chloride 104 mmol/L (98-107); Glucose 134 mg/dl (70-99); Potassium 3.6 mmol/L (3.5-5.1); Sodium 138 mmol/L (135-145); Total Bilirubin 0.6 mg/dl (0.2-1.3); Total Protein 7.5 g/dl (6.3-8.2); eGFR > 60.00
[2024-09-09 01:03] LABS: Lipase 219 U/L (23-300)
--- NOTE | 2024-09-09 03:58 | ED.GENMED ---
History of Present Illness
General
Chief Complaint: Abdominal Pain
Source: patient
Exam Limitations: none
Time Seen by Provider: 09/09/24 03:46
Nursing documentation reviewed up to this point in time: agreed with
History of Present Illness
History of Present Illness:
Pleasant 44-year-old female who presents with diffuse abdominal pain. Patient admits to having identical pain several nights ago. Was seen in the emergency department and had a CT scan and ultrasound which did not yield a definitive diagnosis.
She left the emergency department at that time feeling better. While lying in bed around 11 PM, she rolled over and the pain returned. She vomited several times at home and was nauseated. Patient came into the emergency department and symptoms
had resolved greatly. She states that when she first got here her pain was moderate, now she reports it is minimal to nonexistent. Patient has been taking ibuprofen at home. She tried Mylanta with minimal relief. Patient admits to smoking
marijuana several days prior to the onset of symptoms.
CT scan on September [address] evidence for acute inflammatory process in the abdomen or pelvis.Transvaginal ultrasound on the same day showed no sonographic evidence for an acute abnormality of the pelvis.
Past History
Past History
ED Past Medical History: Asthma
ED Past Surgical History: Appendectomy and (X2)
Social History
Tobacco: Former smoker
Alcohol: Occasional (Drink wine every other day but has stopped doing this over the last 2 months)
Drug: Marijuana (Medical marijuana card but has not been using this as it stimulated palpitations)
Personal:
Living: with family
Review of Systems
Review of Systems
Allergies reviewed?: Yes
All Other Systems: ROS reviewed and negative except as documented in HPI and ROS
Constitutional: Reports no symptoms
EENT: Reports no symptoms
Respiratory: Reports no symptoms
Cardiac: Reports no symptoms
ABD/GI: Reports abdominal pain, nausea and vomiting
: Reports no symptoms
Musculoskeletal: Reports no symptoms
Skin: Reports no symptoms
Neurological: Reports no symptoms
Endocrine: Reports no symptoms
Hematologic/Lymphatic: Reports no symptoms
Psychiatric: Reports no symptoms
Phy Exam
General Physical Exam
General Presentation: well appearing and no apparent distress
General Skin: warm and dry
General Habitus: normal
General Mental: alert
General Hydration: appears well hydrated
ENT Exam
ENT Exam: EOMI, pharynx normal, neck supple and normocephalic
Eye Exam
Eye Exam: PERRL, cornea clear and conjunctiva normal
Cardiovascular Exam
Cardiovascular Exam: regular rate/rhythm, no edema, no murmur and normal peripheral pulses
Pulmonary Exam
Pulmonary Exam: lungs clear, no respiratory distress, no rales, no crackles, no rhonchi, no stridor, no wheezing and no cough
Gastrointestinal Exam
Gastrointestinal Exam: normal bowel sounds, soft, no organomegaly, no pulsatile mass and non distended
Palpation: left upper quadrant: Minimal tenderness, left lower quadrant: Minimal tenderness, right upper quadrant: Minimal tenderness and right lower quadrant: Minimal tenderness
Neurological Exam
Neurological Exam: alert, oriented x3, no motor deficits and speech normal
Musculoskeletal Exam
Musculoskeletal Exam: full ROM and no edema
Skin Exam
Skin Exam: normal color, warm/dry, no rash and no petechia
Psychiatric Exam
Psychiatric Exam: normal mood/affect
Course
Orders/Labs/Results
Orders:
Orders
09/09/24 00:18
Test Result ONCE
09/09/24 00:28
Complete Blood Count/With Diff Urgent
Comprehensive Metabolic Panel Urgent
HCG, Serum Qualitative Screen Urgent
Lipase Urgent
09/09/24 00:30
Ondansetron Injectable [Zofran] 4 mg .ROUTE .STK-MED ONE
09/09/24 00:32
Ondansetron Injectable [Zofran] 4 mg IV NOW STA
09/09/24 03:58
CR Abdomen - 1 View Urgent
Comment:
Reason For Exam: abd pain
09/09/24 03:59
Pantoprazole [Protonix] 40 mg PO NOW STA
Abnormal Lab Results
09/09/24
00:28
WBC 12.8 H 10^3/uL
(4.8-10.8)
Abs Immat Gran (auto) 0.1 H 10^3/uL
(0-0.05)
Absolute Neuts (auto) 9.6 H 10^3/uL
(1.4-6.5)
Lymphocytes % 19.6 L %
(20.5-51.1)
Carbon Dioxide 18 L mmol/L
(22-30)
BUN 19 H mg/dl
(7-17)
Glucose 134 H mg/dl
(70-99)
Calcium 10.5 H mg/dl
(8.4-10.2)
AST 52 H U/L
(14-36)
09/09/24 00:28
09/09/24 00:28
Vital Signs
Initial and Last Documented VS:
Initial Vital Signs
Temp Pulse Resp BP Pulse Ox
98.0 F 84 24 127/80 100
09/09/24 00:10 09/09/24 00:10 09/09/24 00:10 09/09/24 00:10 09/09/24 00:10
Last Documented Vital Signs
Temp Pulse Resp BP Pulse Ox
98.0 F 84 24 126/75 97
09/09/24 00:10 09/09/24 00:10 09/09/24 00:10 09/09/24 05:00 09/09/24 05:00
*Pulse Oximetry
Patient hypoxic: no
*Critical Care Note
Total Time (30-74mins, 75-104mins- exclusive of procedures): Not Applicable
ED Attending Note
-
Portions of this chart may have been created with voice recognition software.� Occasional wrong word or��sound alike� substitutions may have occurred due to the inherent limitations of voice recognition software.
Discharge Plan
Departure
Patient Disposition: Home (Routine Discharge)
Date of Disposition: 09/09/24
Time of Disposition: 04:40
Patient with high blood pressure during this ER visit?: Yes
Condition: Good
Discharge Problem:
Abdominal pain in female
Instructions: Nausea and Vomiting, Adult (DC), Abdominal Pain
Prescriptions:
New
ondansetron 4 mg tablet,disintegrating
4 mg PO Q4H PRN (Reason: nausea and vomiting) Qty: 14 0RF
pantoprazole [Protonix] 40 mg tablet,delayed release (DR/EC)
40 mg PO DAILY Qty: 20 0RF
No Action
Zyrtec 10 mg Capsule
10 mg PO DAILY
doxepin 6 mg Tablet
6 mg PO HS
lorazepam [Ativan] 0.5 mg tablet
0.5 mg PO HS PRN (Reason: anxiety) Qty: 7 0RF
Referrals:
[facility] [Provider Group]
[facility] [Outside]
Activity Restrictions/Additional Instructions:
It was a pleasure meeting you and taking part in your care. We hope for your continued healing and wellness.
Please read discharge instructions in their entirety. However, they are for general education and may not describe your exact diagnosis at discharge. Information on your ER visit and medical conditions were discussed with you along with appropriate
follow up information...
If indicated, please take your medications as instructed and indicated on discharge paperwork.
Please schedule a follow up appointment as directed. Call to schedule an appointment
Please return to the emergency department with ANY change in, persisting, or worsening of symptoms. If any of your symptoms do not improve, or persist, or become more severe within 6-12 hours, please return to the emergency department for further
care.
Please return to the emergency department if you develop a headache, neck pain/stiffness, fever greater than 100.4F, chest pain, shortness of breath, persistent nausea, vomiting, slurred speech, difficulty walking, numbness/tingling, weakness, signs
of infection or any other symptoms that are worrisome to you.
If you have any questions or concerns please do not hesitate to call the Hospital at or E-mail me directly at [email or web address]
Interventions
Interventions:
*Risk Screen - Suicide Last Done: 09/09/24 00:10
*General Assessment Last Done: 09/09/24 03:59
*Neglect/Abuse Screening Last Done: 09/09/24 03:59
ED- Fall Risk Assessment Last Done: 09/09/24 04:11
*ED COVID-19 Vaccine History Last Done: 09/09/24 03:09
*Nursing Disposition Last Done: 09/09/24 05:12
HM-Xvzrkg-Uuozfxhkuf Assessment Last Done: 09/09/24 03:59
Discharge Date and Time
Discharge Date/Time: 09/09/24 05:14
Print Language: BARBAD[place]
[2024-09-09] MEDS: PROTONIX 40 MG PO (04:09)
[2024-09-09 04:10] VITALS: BP 133/80
[2024-09-09 04:11] VITALS: BMI 25.3
[2024-09-09 05:00] VITALS: BP 126/75
== END 2024-09-09 05:14 | disposition home or self-care (01) ==
LOC: EMR 00:06
PROVIDERS: EMERGENCY PHYSICIAN Student in an Organized Health Care Education/Training Program
DX: R10.9 Unspecified abdominal pain (principal); R03.0 Elevated blood-pressure reading, without diagnosis of hypertension; Z87.891 Personal history of nicotine dependence
CPT/HCPCS: 99284; 96374; 74018; 80053; 83690; 84703; 85025

== ENCOUNTER → 2024-11-17 11:16 | Outpatient (REF) | payer OTHER, SELFPAY | LOC: HWWDC 11:16 | PROVIDERS: ATTENDING PHYSICIAN Family Medicine; FAMILY PHYSICIAN Student in an Organized Health Care Education/Training Program; REFERRING PHYSICIAN Obstetrics & Gynecology | DX: Z12.31 Encounter for screening mammogram for malignant neoplasm of breast (principal) | CPT/HCPCS: 77063; 77067 ==